=== PATIENT | female | born 1985 | race African-American/Black ===

== ENCOUNTER 2020-02-27 20:09 | Inpatient (IN) | payer MEDICAID ==
[~2020-02-27] VITALS: Ht 175.3 cm; Wt 129.7 kg
[2020-02-27 21:32] VITALS: BP 129/89; Ht 175.3 cm; Wt 129.7 kg
[2020-02-27 21:35] LABS: HEMATOCRIT 36.6 % (36.0-48.0); HEMOGLOBIN 12.1 g/dL (12-16); MCH 29.2 pg (26.0-34.0); MCHC 33.1 g/dL (31.0-37.0); MCV 88.4 fL (80.0-100.0); MEAN PLATELET VOLUME 10.1 fL (7.4-10.4); RBC 4.14 10x6/uL (4.00-5.40); WBC 5.9 10x3/uL (4.8-10.8)
[2020-02-27 21:45] LABS: UDS - AMPHET NEGATIVE QUAL (NEGATIVE); UDS - BARB NEGATIVE QUAL (NEGATIVE); UDS - BENZO NEGATIVE QUAL (NEGATIVE); UDS - COCAINE NEGATIVE QUAL (NEGATIVE); UDS - OPIATE NEGATIVE QUAL (NEGATIVE); UDS - PCP NEGATIVE QUAL (NEGATIVE); UDS - THC NEGATIVE QUAL (NEGATIVE)
[2020-02-27 21:53] LABS: BILIRUBIN NEGATIVE (NEGATIVE); EPITHELIAL CELLS 0-5 /hpf (0-5); GLUCOSE NEGATIVE (NEGATIVE); KETONE NEGATIVE (NEGATIVE); NITRITE NEGATIVE (NEGATIVE); RED CELLS - URINE OCC /hpf (0-5); UROBILINOGEN NORMAL (NORMAL); WHITE CELLS - URINE OCC /hpf (NEGATIVE)
[2020-02-27 22:14] LABS: ALBUMIN 2.6 g/dL (3.4-5.0); ANION GAP 12.8 mmol/L (8-16); BILIRUBIN - TOTAL 0.29 mg/dL (0.2-1.3); CALCIUM 8.6 mg/dL (8.5-10.1); CARBON DIOXIDE 25.3 mmol/L (21.0-32.0); POTASSIUM - SERUM 4.1 mmol/L (3.5-5.1); PROTEIN - SERUM 6.2 g/dL (6.4-8.2)
--- NOTE | 2020-02-28 18:32 | NUR ---
FLUID BOLUS COMPLETED. L HAND PIV SL. EATING MEAL BROUGHT TO HER BY FAMILY MEMBER. WILL NOTIFY LAB TO COME TO UNIT TO DRAW LAB ORDER.
--- NOTE | 2020-02-28 18:41 | MORECARE ---
CASE MANAGEMENT DISCHARGE SUMMARY PATIENT: SIS HILLS UNIT: [id number] ADM DATE: 02/27/20 AGE: 34 : 85 SEX: F ROOM/BED: D.1277 AUTHOR: MAXWELL ZELAYA PHYSICIAN: REFERRING PHYSICIAN: JUAN ALLAN MD DATE OF SERVICE: 02/28/20 Discharge Plan Patient Name: SIS HILLS Facility: [facility]:[place] : 1985 Planned Disposition: Home Anticipated Discharge Date: 02/29/20 Discharge Date: Expected LOS: 2 Initial Reviewer: [email or web address] Initial Review Date: 02/27/2020 Generated: 02/28/20 7:41 pm Patient Name: SIS HILLS Page [phone] at 1841 All edits/amendments must be made on the electronic document DICTATION DATE: 02/28/201840 CRISIS MENTAL HEALTH THERAPIST: KINGA 02/28/201840 RPT#: [id number] DC DATE: STATUS: ADM IN [facility] [address] [place] [address] END OF REPORT
--- NOTE | 2020-02-28 19:11 | NUR ---
RN TO PT BEDSIDE FOR ROUNDING, PT STATES SHE FEELS DIZZY AT THIS TIME. PT'S SISTER IN THE ROOM STATES SHE HAS BEEN ACTING DIZZY FOR THE PAST 30-40 MINUTES. PT IS STILL IN BED AND HAS NOT AMBULATED. BP TAKEN, BP IS 101/60 WITH HR OF 75. THIS RN STATES TO PT SHE WILL NOT HAVE PT GET OFF BED TO AMBULATE TO BATHROOM, BEDPAN WILL BE PROVIDED. RN WILL CONTINUE TO MONITOR PT'S BP, AND WILL NOTIFY MD IF PT CONTINUES TO FEEL SYMPTOMATIC.
--- NOTE | 2020-02-28 19:56 | NUR ---
RN TO PT BEDSIDE FOR REASSESSMENT OF PT'S SYMPTOMS. PT STATES SHE IS NO LONGER DIZZY, PT'S BP AT THIS TIME IS 133/80 WITH HR OF 87. PT STATES SHE FEELS SHE CAN AMBULATE AT THIS TIME. RN WILL ATTEMPT TO ASSIST PT TO A STANDING POSITION.
[2020-02-28 20:01] VITALS: BP 133/80
--- NOTE | 2020-02-28 20:01 | NUR ---
RN TO PT BEDSIDE FOR SHIFT ASSESSMENT. PT DENIES PAIN AT THIS TIME. PT ASSISTED TO AMBULATORY POSITION, GAIT STEADY, FUNDUS IS FIRM, MIDLINE, AT UMBILICUS, SCANT RUBRA LOCHIA NOTED, NO CLOTS NOTED, PT AMBULATORY TO BATHROOM. NON-SKID SOCKS ON, BED IN LOWEST POSITION, CALL LIGHT IN REACH.
--- NOTE | 2020-02-28 20:09 | NUR ---
PT TRANSFERRED TO ROOM 1278.
[2020-02-28 21:26] LABS: BASOPHILS 0.1 % (0-2); EOSINOPHILS 0 % (0-7); HEMATOCRIT 34.1 % (36.0-48.0); HEMOGLOBIN 11.2 g/dL (12-16); IMMATURE GRANULOCYTES 0.2 % (0-5); MCH 28.9 pg (26.0-34.0); MCHC 32.8 g/dL (31.0-37.0); MCV 88.1 fL (80.0-100.0); MEAN PLATELET VOLUME 9.9 fL (7.4-10.4); MONOCYTES 5.9 % (2-11); NEUTROPHILS 84.8 % (40-80); PLATELET COUNT 204 10x3/uL (130-400); RBC 3.87 10x6/uL (4.00-5.40); RDW 14.2 % (11.5-14.5)
[2020-02-28 21:30] LABS: WBC 12.3 10x3/uL (4.8-10.8)
[2020-02-28 21:38] LABS: ALBUMIN 2.3 g/dL (3.4-5.0); BILIRUBIN - DIRECT 0.1 mg/dL (0.00-0.30); BILIRUBIN - INDIRECT 0.27 mg/dL (0.00-1.00); BILIRUBIN - TOTAL 0.37 mg/dL (0.2-1.3); PROTEIN - SERUM 5.8 g/dL (6.4-8.2); URIC ACID 5.9 mg/dL (2.6-7.2)
[2020-02-29 00:33] VITALS: BP 119/80
--- NOTE | 2020-02-29 00:33 | NUR ---
RN TO PT ROOM FOR ROUNDING, VSS. FUNDUS FIRM, MIDLINE, 2 BELOW, SCANT RUBRA LOCHIA NOTED. IN CRIB AT BEDSIDE. BED IN LOWEST POSITION, CALL LIGHT IN REACH, SIDE RAILS UPX2.
[2020-02-29 02:38] VITALS: BP 11/62; BP 111/62
--- NOTE | 2020-02-29 02:38 | NUR ---
RN TO PT BEDSIDE FOR REPEAT BP PRIOR TO ADMINISTRATION OF SCHEDULED LABETOLOL. BP FOUND TO BE 111/62 AND HR OF 94. SCHEDULED LABETOLOL HELD AT THIS TIME.
[2020-02-29 04:28] VITALS: BP 121/73
--- NOTE | 2020-02-29 04:28 | NUR ---
RN TO PT BEDSIDE FOR ROUND, VSS. PT STATES PAIN IS 5/10. FUNDUS IS FIRM, MIDLINE, 2 BELOW, SCANT RUBRA LOCHIA NOTED ON PERIPAD, NO CLOTS NOTED. RN TO REVIEW MAR AND ADMINISTER PAIN MED. BED IN LOWEST POSITION, CALL LIGHT IN REACH, SIDE RAILS UPX2.
[2020-02-29 06:09] LABS: RAPID PLASMA REAGIN Non Reactive (Non Reactive)
[2020-02-29 07:16] VITALS: BP 122/72
--- NOTE | 2020-02-29 07:17 | NUR ---
PT REC'D RESTING QUIETLY W/ EYES CLOSED, SEMIFOWLERS POSITION, SLEEPING IN ARMS, AROUSES EASILY TO NAME CALLED, PT EDUCATON ABOUT DANGERS OF CO SLEEPING, STATED UNDERSTANDING, ASSESSMENT COMPLETED, VS STABLE, FUNDUS FIRM U-2, LOCHIA SCANT, PT EDUCATION REGARDING NEED TO AMBULATE TODAY, PT STATES SHE GETS ENOUGH WALKING GETTING OUT OF BED AND GOING TO BR. ENCOURAGED TO GET UP IN JUNG TODAY. OFFERED ASSISTANCE W/ AMBULATION
--- NOTE | 2020-02-29 08:30 | NUR ---
to room to transport to [facility] control operator assessment, pt states she is really tired and desires to take a nap/ linens given for shower along w/ bath and body wash. no needs voiced
--- NOTE | 2020-02-29 09:45 | NUR ---
CALLS VIA CALL LIGHT, RN TO BEDSIDE, REQUESTS L AND R HAND PIV'S BE REMOVED, STATES THAT SHE IS GOING TO SHOWER. LABS REVIEWED, PT VERBALIZES UNDERSTANDING THAT IF PIV'S ARE REMOVED AND IV ACCESS IS NEEDED A NEW ONE WILL HAVE HAVE TO BE PLACED, VERBALIZES UNDERSTANDING. BOTH PIV'S REMOVED WITH TIPS INTACT. BANDAIDS PLACED. PT UP TO SHOWER. REFUSES LINEN CHANGE. STATES THAT SHE PLANS TO GO HOME TO TODAY. INFANT TO NBN PER THIS RN.
--- NOTE | 2020-02-29 11:30 | NUR ---
at bedside, assisted w/ clean gown, no needs voiced at this time
[2020-02-29 12:13] VITALS: BP 144/86
--- NOTE | 2020-02-29 13:30 | NUR ---
to room for wellness check, no needs voiced, states pain level 1 or 2, fundus firm u-2, lochia scant
--- NOTE | 2020-02-29 15:57 | NUR ---
resting quietly w/ eyes closed, respirations even and unlabored. w/o signs of distress, did not disturb
--- NOTE | 2020-02-29 17:10 | NUR ---
discharge instructions reviewed w/ pt per [facility] handout, pt verbalized understanding and denies questions, pt provided w/ copy of [facility] post instructions, save your life warning signs,and community resources, also went over save your life handout w/ pt verbalized understanding and denies questions, rooming in agreement reviewed w/ pt, needed info obtained and given to nursery, pt will be moved to room 1218, dietary notified of pt rooming in status.
--- NOTE | 2020-02-29 17:16 | NUR ---
MARY IN DIETARY NOTIFIED THAT PT HAD BEEN D/C'D TO ROOMING IN STATUS AND WILL BE MOVING TO 1218
--- NOTE | 2020-03-04 09:06 | MORECARE ---
CASE MANAGEMENT DISCHARGE SUMMARY PATIENT: SIS HILLS UNIT: [id number] ADM DATE: 02/27/20 AGE: 34 : 85 SEX: F ROOM/BED: D.1278 AUTHOR: MAXWELL ZELAYA PHYSICIAN: REFERRING PHYSICIAN: JUAN ALLAN MD DATE OF SERVICE: 03/04/20 Discharge Plan Patient Name: SIS HILLS [facility] [facility] 1985 Planned Disposition: Home Anticipated Discharge Date: 02/29/20 Discharge Date: 02/29/2020 Expected LOS: 2 Initial Reviewer: [email or web address] Initial Review Date: 02/27/2020 Generated: 03/04/20 10:05 am Last DP export: 02/28/20 5:41 p Patient Name: SIS HILLS Page [id number] at 0906 All edits/amendments must be made on the electronic document DICTATION DATE: 03/04/20905 OUTDOOR ADVENTURE LEADER: KINGA 03/04/20905 RPT#: [id number] DC DATE:02/29/20 STATUS: DIS IN [facility] [address] [place] [address] END OF REPORT
== END 2020-02-29 17:10 | disposition home or self-care (01) | DRG 807 ==
LOC: D.LD 20:09
PROVIDERS: ADMIT Obstetrics & Gynecology; ATTEND Obstetrics & Gynecology
PROC: 10E0XZZ Delivery of Products of Conception, External Approach (ICD-10-PCS; principal; 2020-02-28)
PROC: 0HQ9XZZ Repair Perineum Skin, External Approach (ICD-10-PCS; 2020-02-28)
DX: O70.0 First degree perineal laceration during delivery (principal); Z37.0 Single live birth; Z3A.39 39 weeks gestation of pregnancy